=== PATIENT | male | born 1950 | race African-American/Black ===

== ENCOUNTER 2017-07-07 10:57 | Emergency (ER) | payer SELFPAY ==
[~2017-07-07] VITALS: Ht 177.8 cm; Wt 64.0 kg
[2017-07-07] MEDS ORDERED: BACITRACIN ZINC OINT UDPKT TOP ONE (13:00)
[2017-07-07] MEDS ORDERED: LIDOCAINE HCL 1% 20ML VIAL (Pyxis) INJ MC ONE (13:00)
[2017-07-07] MEDS ORDERED: LIDOCAINE HCL/PF 1% 10 MG/ML 5ML VIAL IJ NR (13:00)
[2017-07-07 14:54] VITALS: BP 121/73
== END 2017-07-07 14:56 | disposition home or self-care (01) ==
LOC: ER 12:19
DX: L03.011 Cellulitis of right finger (principal)
CPT/HCPCS: 10060; 99283; J3490; Z7610

== ENCOUNTER 2017-07-10 08:40 | Emergency (ER) | payer OTHER ==
[~2017-07-10] VITALS: Ht 177.8 cm; Wt 63.0 kg
[2017-07-10 10:15] VITALS: BP 114/69
== END 2017-07-10 11:03 | disposition home or self-care (01) ==
LOC: ER 09:05
DX: Z48.00 Encounter for change or removal of nonsurgical wound dressing (principal)
CPT/HCPCS: 99281